=== PATIENT | female | born 1995 | race American Indian/Alaskan Native ===

== ENCOUNTER 2017-04-23 09:54 | Emergency (ER) | payer MEDICAID, OTHER ==
--- NOTE | 2017-04-23 10:04 | ED PDOC ---
Arrival/HPI - General Chief Complaint: GI Problem Time Seen by Provider: 04/23/17 09:57 Historian: Patient - History of Present Illness Narrative History of Present Illness (Text): 04/23/17 10:04 This 22 yo female, , LMP 2017, presents to this ED c/o intermittent nausea, vomiting, diarrhea, and epigastric pain x 7 days. Patient denies sob, fever, pelvic pain, vaginal bleeding, vaginal discharge, urinary symptoms, dizziness, vaginal itching, vaginal rash, or abnormal gait. Time/Duration: Other (see hpi) Quality: Cramping Context: Home Past Medical History - Provider Review Nursing Documentation Reviewed: Yes - Psychiatric Hx Psychophysiologic Disorder: No Hx Substance Use: No Family/Social History - Physician Review Nursing Documentation Reviewed: Yes Family/Social History: Other (noncontributory) Smoking Status: Never Smoked Hx Alcohol Use: Yes Frequency of alcohol use: Socially Hx Substance Use: No Allergies/Home Meds Allergies/Adverse Reactions: Allergies No Known Allergies Allergy (Verified 04/23/17 09:57) Review of Systems - Review of Systems Constitutional: Normal. absent: Fatigue, Weight Change, Fevers, Night Sweats Eyes: Normal ENT: Normal Respiratory: Normal Cardiovascular: Normal Gastrointestinal: Abdominal Pain, Diarrhea, Nausea, Vomiting Genitourinary Female: Normal. absent: Dysuria, Frequency, Hematuria, Urine Output Changes, Vaginal Discharge Musculoskeletal: Normal. absent: Back Pain Skin: Normal Neurological: Normal. absent: Headache, Dizziness, Focal Weakness, Gait Changes , Speech Changes, Facial Droop, Disequilibrium Endocrine: Normal Hemo/Lymphatic: Normal Psychiatric: Normal Physical Exam Vital Signs Temp Pulse Resp BP Pulse Ox 04/23/17 11:54 98 F 89 18 114/70 99 04/23/17 09:58 99.2 F 104 H 15 115/79 97 Temperature: Afebrile Blood Pressure: Normal Pulse: Tachycardic Respiratory Rate: Normal Appearance: Positive for: Well-Appearing, Non-Toxic, Comfortable Pain Distress: None Mental Status: Positive for: Alert and Oriented X 3 - Systems Exam Head: Present: Atraumatic, Normocephalic Pupils: Present: PERRL Extroacular Muscles: Present: EOMI Conjunctiva: Present: Normal Mouth: Present: Moist Mucous Membranes Neck: Present: Normal Range of Motion Respiratory/Chest: Present: Clear to Auscultation, Good Air Exchange. No: Respiratory Distress, Accessory Muscle Use Cardiovascular: Present: Regular Rate and Rhythm, Normal S1, S2. No: Murmurs Abdomen: Present: Normal Bowel Sounds. No: Tenderness, Distention, Peritoneal Signs, Rebound, Guarding Genitourinary/Pelvic Exam: Present: Other (deferred by patient) Back: Present: Normal Inspection Upper Extremity: Present: Normal Inspection, Normal ROM. No: Cyanosis, Edema Lower Extremity: Present: Normal Inspection, Normal ROM. No: Edema Neurological: Present: GCS=15, CN II-XII Intact, Speech Normal, Motor Func Grossly Intact, Normal Sensory Function, Normal Cerebellar Funct, Gait Normal, Memory Normal Skin: Present: Warm, Dry, Normal Color. No: Rashes Psychiatric: Present: Alert, Oriented x 3, Normal Insight, Normal Concentration Medical Decision Making ED Course and Treatment: 04/23/17 13:43 Re-evaluation. Patient feels better. Discussed results and plan with patient who expresses understanding. All questions answered and there is agreement with the plan to discharge home with instructions. Patient stable for discharge. Return if symptoms persist or worsen. Patient came c/o nausea, vomiting, or diarrhea. Labs demonstrated patient is . Ultrasound was negative. Patient was recommended to f/u [facility] doctor tomorrow. Patient denied urinary symptoms, and she prefers not to take ABX, till urine culture result is available to consider ABX. I told her to reviewed urine culture in 2 days with her [facility] doctor. She understood plan. Re-evaluation Time: 13:43 Reassessment Condition: Re-examined, Improved - Lab Interpretations Lab Results: 04/23/17 10:25 04/23/17 10:25 Lab Results 04/23/17 13:47: Blood Type Confirm O POSITIVE 04/23/17 13:03: Blood Type O POSITIVE, Antibody Screen Negative, BBK History Checked No verified bt 04/23/17 11:06: Blood Type Cancelled, Antibody Screen Cancelled, BBK History Checked Cancelled 04/23/17 10:25: Beta HCG, Quant [id number] H 04/23/17 10:25: Urine Color Yellow, Urine Appearance Clear, Urine pH 7.0, Ur Specific [place] 1.020, Urine Protein Trace H, Urine Glucose (UA) Negative, Urine Ketones Negative, Urine Blood Negative, Urine Nitrate Negative, Urine Bilirubin Negative, Urine Urobilinogen 1.0 H, Ur Leukocyte Esterase Trace H, Urine RBC 1 - 3, Urine WBC 2 - 5, Ur Epithelial Cells 6 - 8, Amorphous Sediment Few, Urine Bacteria Many, Urine Other Uyeast, Urine HCG, Qual Positive 04/23/17 10:25: Sodium 139, Potassium 3.7, Chloride 104, Carbon Dioxide 24, Anion Gap 15, BUN 12, Creatinine 0.5 L, Est GFR ( Amer) > 60, Est GFR ( Non-Af Amer) > 60, Random Glucose 103, Calcium 9.5, Total Bilirubin 0.5, AST 23 , ALT 25, Alkaline Phosphatase 47, Total Protein 7.0, Albumin 4.1, Globulin 2.9 , Albumin/Globulin Ratio 1.4, Lipase 42 04/23/17 10:25: WBC 7.2, RBC 4.02, Hgb 12.3, Hct 37.1, MCV 92.3, MCH 30.6, MCHC 33.2, RDW 13.9, Plt Count 157, MPV 11.6 H, Gran % 75.2 H, Lymph % (Auto) 18.9 L , Taylor % (Auto) 5.3, Eos % (Auto) 0.3 L, Baso % (Auto) 0.3, Gran # 5.43, Lymph # (Auto) 1.4, Taylor # (Auto) 0.4, Eos # (Auto) 0.0, Baso # (Auto) 0.02 I have reviewed the lab results: Yes Interpretation: No clinic. lab abnormalty - RAD Interpretation Narrative RAD Interpretations (Text): 04/23/17 13:35 PROCEDURE: OB Pelvic Ultrasound HISTORY: abd. cramping COMPARISON: None available. FINDINGS: UTERUS: Single Live intrauterine gestation. CRL measures 8 mm equivalent to 6 weeks 5 days. Wks/days gestatioin Gestational sac diameter measures 21 mm equivalent to 6 weeks 4 days gestation age (Ultrasound estimated): 6 weeks 5 days Date of delivery (Ultrasound estimated) : 12/12/2017 Heart rate: 130 bpm. Thea-gestational hemorrhage: None. Uterus measures 9.6 x 8.2 x 7.6 cm. No mass CERVIX: Long and closed. No cervical abnormality seen. RIGHT OVARY: Measures 2.9 x 1.6 x 1.7 cm. No mass. Normal flow. LEFT OVARY: Measures 2.9 x 1.5 x 1.8 cm. No mass. Normal flow. FREE FLUID: None. OTHER FINDINGS: None. IMPRESSION: Single live intrauterine gestation of approximately 6 weeks 5 days gestational age. Heart rate 130 beats per minute. No perigestational hemorrhage. Unremarkable ovaries. No additional abnormality. Radiology Orders: 04/23/17 11:40 OB TRANSVAGINAL [US] Stat - Medication Orders Current Medication Orders: Discontinued Medications Sodium Chloride (Sodium Chloride 0.9%) 1,000 mls @ 999 mls/hr IV .Q1H1M STA Stop: 04/23/17 11:13 Last Admin: 04/23/17 10:33 Dose: 999 mls/hr eMAR Start Stop Document 04/23/17 10:33 MILADY (Rec: 04/23/17 10:33 MILADY [id number]) Intravenous Solution Start Date 04/23/17 Start Time 10:33 Disposition/Present on Arrival - Present on Arrival Any Indicators Present on Arrival: No History of DVT/PE: No History of Uncontrolled Diabetes: No Urinary Catheter: No History of Decub. Ulcer: No History Surgical Site Infection Following: None - Disposition Have Diagnosis and Disposition been Completed?: Yes Diagnosis: , Nonspecific abdominal pain, Nausea and vomiting, Diarrhea Disposition: HOME/ ROUTINE Disposition Time: 13:44 Patient Plan: Discharge Condition: IMPROVED Discharge Instructions (ExitCare): Nausea and Vomiting of Additional Instructions: Call private [employer] doctor for follow up visit in 1-2 days. Drink pedilayte only when you have diarrhea. Do not drink vitamin water or sodas. Eat healthy diet, including soups, saltine cracker, potato, bread. Return to emergency if symptoms worsen. Make sure to review urine culture report and all labs test done in this ED visit including trace of yeast infection with [facility] doctor in 2 days. Prescriptions: Cephalexin [cephalexin] 500 mg PO BID #10 cap Multivit/Folic Acid/I [ Plus] 1 tab PO DAILY #30 tab Referrals: Charlie Bruno, [Primary Care Provider] - Follow up with primary [facility] [Outside] - [facility] [[facility]] - Follow up with primary Forms: [employer] (Uzbek)
[2017-04-23] MEDS ORDERED: Sodium Chloride 0.9% 1,000 ML IV STA (10:13)
[2017-04-23 10:47] LABS: URINE BILIRUBIN NEGATIVE (NEGATIVE); URINE BLOOD NEGATIVE (NEGATIVE); URINE GLUCOSE (UA) NEGATIVE (NEGATIVE); URINE LEUKOCYTE ESTERASE TRACE Leu/uL (NEGATIVE); URINE PROTEIN TRACE mg/dL (<30 mg/dL)
[2017-04-23 10:48] LABS: BASO # 0.02 K/mm3 (0.0-2.0); BASO % 0.3 % (0.0-3.0); EOS % 0.3 % (1.5-5.0); GRAN # 5.43 (1.4-6.5); GRAN % 75.2 % (50.0-68.0); HEMOGLOBIN 12.3 g/dL (12.0-16.0); LYMPH # 1.4 (1.2-3.4); LYMPH % 18.9 % (22.0-35.0); MEAN CELL VOLUME 92.3 fl (80.0-105.0); MEAN CORPUSCULAR HEMOGLOBIN 30.6 pg (25.0-35.0); MEAN CORPUSCULAR HGB CONC 33.2 g/dl (31.0-37.0); MEAN PLATELET VOLUME 11.6 fl (7.0-11.0); MONO # 0.4 (0.1-0.6); MONO % 5.3 % (1.0-6.0); RBC 4.02 10^6/uL (3.5-6.1); RED CELL DISTRIBUTION WIDTH 13.9 % (11.5-14.5); WHITE BLOOD COUNT 7.2 10^3/ul (4.5-11.0)
[2017-04-23 10:49] LABS: URINE APPEARANCE CLEAR (CLEAR); URINE COLOR YELLOW (YELLOW)
[2017-04-23 10:50] LABS: HCG,QUALITATIVE URINE POSITIVE (NEGATIVE)
[2017-04-23 10:53] LABS: ALB/GLOB RATIO 1.4 (1.1-1.8); ALBUMIN 4.1 g/dL (3.0-4.8); ALT/SGPT 25 U/L (7-56); AST/SGOT 23 U/L (14-36); BLOOD UREA NITROGEN 12 mg/dL (7-21); CALCIUM 9.5 mg/dL (8.4-10.5); GFR AFRICAN-AMERICAN > 60; GFR NON-AFRICAN AMERICAN > 60; LIPASE 42 U/L (23-300)
[2017-04-23 10:56] LABS: URINE AMORPHOUS SEDIMENT FEW; URINE BACTERIA MANY (NEG)
[2017-04-23 11:56] VITALS: RESP 18
[2017-04-23 12:11] VITALS: BP 114/70; PULSE 89; TEMP 98; O2SAT 99
--- NOTE | 2017-04-23 12:58 | US ---
PROCEDURE: OB Pelvic Ultrasound HISTORY: abd. cramping COMPARISON: None available. FINDINGS: UTERUS: Single Live intrauterine gestation. CRL measures 8 mm equivalent to 6 weeks 5 days. Wks/days gestatioin Gestational sac diameter measures 21 mm equivalent to 6 weeks 4 days gestation age (Ultrasound estimated): 6 weeks 5 days Date of delivery (Ultrasound estimated) : 12/12/2017 Heart rate: 130 bpm. Thea-gestational hemorrhage: None. Uterus measures 9.6 x 8.2 x 7.6 cm. No mass CERVIX: Long and closed. No cervical abnormality seen. RIGHT OVARY: Measures 2.9 x 1.6 x 1.7 cm. No mass. Normal flow. LEFT OVARY: Measures 2.9 x 1.5 x 1.8 cm. No mass. Normal flow. FREE FLUID: None. OTHER FINDINGS: None. IMPRESSION: Single live intrauterine gestation of approximately 6 weeks 5 days gestational age. Heart rate 130 beats per minute. No perigestational hemorrhage. Unremarkable ovaries. No additional abnormality.
== END 2017-04-23 13:56 | disposition home or self-care (01) ==
LOC: MERGE 09:54 → ED 09:54
DX: O21.9 Vomiting of pregnancy, unspecified (principal); O26.891 Other specified pregnancy related conditions, first trimester; R19.7 Diarrhea, unspecified; R10.9 Unspecified abdominal pain; Z3A.01 Less than 8 weeks gestation of pregnancy
CPT/HCPCS: 76817; 80053; 81001; 83690; 84702; 84703; 85025; 86850; 86900; 87086; 99284; J7040

== ENCOUNTER 2017-07-06 16:43 | Emergency (ER) | payer MEDICAID | END 2017-07-06 16:52 | disposition left against medical advice (07) | LOC: ED 16:43 | DX: Z02.89 Encounter for other administrative examinations (principal); T14.90XA Injury, unspecified, initial encounter ==